=== PATIENT | female | born 1990 | race Caucasian/White ===

== ENCOUNTER 2021-05-01 13:44 | Emergency (ER) | payer MEDICAID, SELFPAY ==
[2021-05-01 14:00] VITALS: BP 183/134; PULSE 98; RESP 22; TEMP 36.4; O2SAT 99; BMI 56.5
--- NOTE | 2021-05-01 14:15 | XR_ITS ---
WS: [id number] Thoracic spine, 3 views, 05/01/2021 Clinical Data: fall Comparison: None. Findings: No compression fractures are seen. The disc heights are normal. The paravertebral regions are normal. XR/XR thoracic spine 3V* [id number] Impression: Negative thoracic spine.
--- NOTE | 2021-05-01 14:15 | XR_ITS ---
WS: [id number] Lumbar spine, 3 views, 05/01/2021 Clinical Data: fall Comparison: None. Findings: No compression fractures or subluxation is seen. No disc space narrowing is seen. The transverse proc esses and SI joints are normal. There is anterior osteoarthritic spurring of the T12-L2 vertebral bodies. There are clips in the righ t upper quadrant from a cholecystectomy. XR/XR lumbar spine 2-3V* [id number] Impression: Osteoarthritis T12-L2.
--- NOTE | 2021-05-01 14:23 | ED_ITS ---
HPI - Fall General: Chief Complaint: Fall Stated Complaint: Fell and all of back hurting bad Time Seen by Provider: 05/01/21 14:09 History of Present Illness: Patient states that she was at a client's house last night and tripped over a light in his yard falling forward on elbow on the left side. Patient said she did not injure her elbow or knees but she felt pain in her back. She says worse on waking this morning says she has pain in several spots in her back. Associated symptoms-after fall: Denies abdominal pain, chest pain or headache(s) Review of Systems Const: Denies: fever(s), chills or body aches Eyes: Denies: eye discomfort ENMT: Denies: throat pain Card: Denies: chest pain Resp: Denies: dyspnea GI: Denies: abdominal pain, nausea or vomiting Musc: Reports: back pain and limited range of motion Skin/Breast: Denies: rash Neuro: Denies: headache(s) Psych: Denies: depression or suicidal ideation Physical Exam Const: COMMON NORMALS: no acute distress, patient oriented x3 and alert HENMT: COMMON NORMALS: normocephalic and external ears normal HEAD & SCALP: normocephalic EXTERNAL EAR: Yes external ears normal Eye: COMMON NORMALS: EOMs intact bilaterally Neck/C-Spine: COMMON NORMALS: no JVD Resp: COMMON NORMALS: normal respiratory effort and No use of accessory muscles Cardio: COMMON NORMALS: no JVD GI: INSPECTION: Yes normal to inspection Back/Pelvis: THORACIC SPINE/UPPER BACK: Yes pain with ROM, No thoracic spinal tenderness and Yes paraspinal muscle tenderness (Left side up in her shoulder blade.) Thoracic paraspinal muscle tenderness: left (And left mid back) LUMBAR SPINE/LOWER BACK: Yes lumbar ROM normal and Yes paraspinal muscle tenderness (More so on the right.) Lumbar paraspinal muscle tenderness: bilateral Extremity: COMMON NORMALS: normal to inspection and full ROM Neuro: COMMON NORMALS: patient oriented x3 SENSORIUM/ORIENTATION: Yes alert Psych: COMMON NORMALS: mental status grossly normal Skin: COMMON NORMALS: no rashes or lesions noted GENERAL SKIN EXAM: no rashes or lesions noted Course Vital Signs: Vital signs: Vital Signs Temperature 97.6 F 05/01/21 14:00 Pulse Rate 98 05/01/21 14:00 Respiratory Rate 22 H 03/24/22 14:00 Blood Pressure 183/134 05/01/21 14:00 Pulse Oximetry 99 05/01/21 14:00 MDM - Fall Medical Decision Making Patient with back strain from fall. Prescription was given for discomfort. Patient adamant that she does not want work comp following this issue going running through her own insurance. I told her I do not have any choice and matters not up to me that she needs to talk to the front office people concerning this and talk with her boss and she did report this to her boss that she fell. Lab Data Radiology Impressions Lumbar Spine X-Ray 05/01/21 14:15 Impression: Osteoarthritis T12-L2. Thoracic Spine X-Ray 05/01/21 14:15 Impression: Negative thoracic spine. Discharge Plan Discharge Patient Disposition: Home Clinical Impression: Back pain Qualifiers: Back pain location: thoracic back pain Chronicity: acute Back pain laterality: left Qualified Code(s): M54.6 - Pain in thoracic spine Condition: Stable Prescriptions: New Celebrex 100 mg capsule 100 mg PO BID Qty: 20 0RF cyclobenzaprine 5 mg tablet 5 mg PO TID PRN (Reason: muscle spasm) Qty: 10 0RF Discharge Orders: Discharge ED (Routine); Ordered 05/01/21 Ordered By: Gabriel Jack Discharge Diet: Usual diet Discharge Activity: Increase activity as tolerated Patient Instructions: Back Pain (ED) Activity Restrictions/Additional Instructions: Take medication as directed. Can apply ice or heat to area to help with discomfort. Follow-up with your work comp doctor in the next week or 2 for reassessment. Coding Level of Care Code ED Credit Investigator for Syd Fwd Exam Comprehensive
[2021-05-01] MEDS: CELEcoxib 200 mg Capsule 400 MG PO (15:06)
== END 2021-05-01 16:03 | disposition home or self-care (01) ==
PROVIDERS: Emergency Provider Nurse Practitioner Family
DX: M54.6 Pain in thoracic spine (principal)
CPT/HCPCS: 72072; 72100; 99283